=== PATIENT | female | born 1975 | race Caucasian/White ===

== ENCOUNTER 2017-03-16 02:59 | Emergency (ER) | payer OTHER ==
[~2017-03-16] VITALS: Ht 160 cm; Wt 78.7 kg
[~2017-03-16 02:59] MED LIST: ALPR0.25 PO; FLUO10CA13 PO
[2017-03-16 04:30] VITALS: BP 135/79
== END 2017-03-16 04:32 | disposition home or self-care (01) ==
LOC: ED 04:21
DX: N30.01 Acute cystitis with hematuria (principal); R30.0 Dysuria
CPT/HCPCS: 81001; 87086; 99284

== ENCOUNTER → 2017-04-05 | Outpatient (CLI) | payer OTHER ==
[~2017-04-05] MED LIST changes: +OMNIPAQUE 300 MG/ML, 10ML VIAL ONE
== END | disposition home or self-care (01) ==
LOC: RAD 08:37
PROVIDERS: ATTEND Student in an Organized Health Care Education/Training Program
DX: N92.6 Irregular menstruation, unspecified (principal)
CPT/HCPCS: 74740; Q9967